=== PATIENT | male | born 1960 | race Two or more races ===

== ENCOUNTER 2019-04-15 10:50 | Emergency (ER) | payer OTHER ==
[~2019-04-15] VITALS: Ht 167.6 cm; Wt 74.8 kg
[2019-04-15 10:53] VITALS: BP 155/98
--- NOTE | 2019-04-15 10:58 | NUR ---
BIB . AAO X4 C/O ABSCESS SINCE MONDAY. 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 ERYTHEMA PRESENT ON PT R MEDIAL THIGH ACCOMPANIED BY BLISTERS. PT STATES 8/10 SHARP, BURNING PAIN. WARM AND TENDER TO TOUCH, REPORTS ITCHINESS. PT DENIES FEVER, SOB, N/V. ER TO EVALUATE PT.
--- NOTE | 2019-04-15 10:58 | NUR ---
PT AMBULATED TO ER BED 10
--- NOTE | 2019-04-15 11:25 | NUR ---
DR JONES AT BEDSIDE FOR PT EVALUATION
[2019-04-15] MEDS ORDERED: CLINDAMYCIN 600 MG/4 ML VIAL IM ONE (11:30)
[2019-04-15] MEDS ORDERED: NEOMYCIN/POLYMYXIN/BACITRACIN 0.9 GM/1 PKT TP ONE (11:30)
[2019-04-15] MEDS ORDERED: DEXAMETHASONE 10 MG/ML VIAL IM ONE (11:30)
[2019-04-15] MEDS ORDERED: hydrOXYzine HCL 25 MG TAB PO ONE (11:30)
--- NOTE | 2019-04-15 12:50 | NUR ---
DR JONES AT BEDSIDE FOR PT RE EVALUATION
[2019-04-15 13:30] VITALS: BP 130/90
--- NOTE | 2019-04-15 13:30 | NUR ---
Patient discharged with v/s stable. Written and verbal after care instructions given and explained. Patient alert, oriented and verbalized understanding of instructions. Ambulatory with steady gait. All questions addressed prior to discharge. ID band removed. Patient advised to follow up with PMD. Rx of PREDNISONE, ATARAX, CLINDAMYCIN 300MG given. Patient educated on indication of medication including possible reaction and side effects. Opportunity to ask questions provided and answered.
== END 2019-04-15 13:30 | disposition home or self-care (01) ==
LOC: MED 10:50
DX: S70.361A Insect bite (nonvenomous), right thigh, initial encounter (principal); S70.321A Blister (nonthermal), right thigh, initial encounter; W57.XXXA Bitten or stung by nonvenomous insect and other nonvenomous arthropods, initial encounter; Y93.89 Activity, other specified; Y92.89 Other specified places as the place of occurrence of the external cause; Y99.8 Other external cause status
CPT/HCPCS: 96372; 99283; J1100; J3490

== ENCOUNTER 2019-07-08 11:27 | Emergency (ER) | payer OTHER ==
[~2019-07-08] VITALS: Ht 165.1 cm; Wt 74.4 kg
[2019-07-08 11:33] VITALS: BP 127/93
--- NOTE | 2019-07-08 11:41 | NUR ---
PT AMBULATED BACK TO THE [facility] WITH STEADY GAIT.
--- NOTE | 2019-07-08 11:48 | NUR ---
PT TAKEN TO BED 2.
--- NOTE | 2019-07-08 12:01 | NUR ---
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 PT STATES HE HAS "HEAVY" PAIN IN BLE, AND FAST HEART RATE. CURRENT HEART RATE 91, HEART RRR, DENIES CP, RADIAL PULSES 2+ AND EQUAL, NO EDEMA, NO JUGULAR VEIN DISTENTION, CAP REFIL <2 SEC. RR EVEN AND NON LABORED WITH CLEAR BREATH SOUNDS THROUGHOUT. PT DENIES FEVER, N/V, SOB. VSS. ER MD TO SEE PT. PT REPORTS EXTRA STRESS FROM RECENTLY MOVING IN WITH KIDS AND GRANDKIDS. PMH: DM, HTN MED RX: hydralazine, AMLODIPINE, METFORMIN ALLERGY: DENIES
[2019-07-08] MEDS ORDERED: ASPIRIN 325 MG TAB PO ONE (12:25)
--- NOTE | 2019-07-08 12:50 | NUR ---
Labs drawn and sent to lab.
[2019-07-08 13:06] LABS: BASOPHILS % (AUTO) 0.6 % (0.0-2.0); EOSINOPHILS % (AUTO) 0.6 % (0.0-4.0); HEMATOCRIT 46.2 % (36-52); LYMPHOCYTES # (AUTO) 1.5 K/uL (2.0-11.5); LYMPHOCYTES % (AUTO) 19.6 % (20.5-51.1); MEAN CORPUSCULAR HEMOGLOBIN 32 pg (27-31); MEAN CORPUSCULAR HGB CONC 35 g/dL (33-37); MEAN CORPUSCULAR VOLUME 91.1 fL (80-94); MONOCYTES # (AUTO) 0.7 K/uL (0.8-1.0); MONOCYTES % (AUTO) 9.3 % (1.7-9.3); NEUTROPHILS # (AUTO) 5.4 K/uL (1.8-7.7); NEUTROPHILS % (AUTO) 69.9 % (42.2-75.2); PLATELET COUNT (AUTO) 254 K/uL (140-450); RED BLOOD CELL COUNT(AUTO) 5.07 MIL/uL (4.20-6.10); RED CELL DISTRIBUTION WIDTH 13.2 % (11.6-13.7); WHITE BLOOD COUNT (AUTO) 7.7 K/uL (4.8-10.8)
--- NOTE | 2019-07-08 13:20 | NUR ---
PT RESTING IN BED, AAOX4, PT DENIES ANXIETY OR PAIN AT THIS TIME. PT STATED THAT HE WAS HUNGRY, PER MD OKAY TO EAT, ODERED PT LUNCH.
[2019-07-08 13:52] LABS: POTASSIUM 3.4 mmol/L (3.5-5.1)
[2019-07-08 13:53] LABS: ANION GAP 14.9 (8-16); CARBON DIOXIDE 23.5 mmol/L (21-32); CREATININE 0.8 mg/dL (0.7-1.3)
[2019-07-08 15:00] VITALS: BP 133/87
--- NOTE | 2019-07-08 15:00 | NUR ---
Patient discharged with v/s stable. Written and verbal after care instructions given and explained. Patient verbalized understanding. Ambulatory with steady gait. All questions addressed prior to discharge. Advised to follow up with PMD.
== END 2019-07-08 15:00 | disposition home or self-care (01) ==
LOC: MED 11:27
DX: R00.2 Palpitations (principal); F41.9 Anxiety disorder, unspecified; E11.9 Type 2 diabetes mellitus without complications; I10 Essential (primary) hypertension
CPT/HCPCS: 36415; 71045; 80048; 82948; 84484; 85025; 93005; 99284; Q0092